=== PATIENT | female | born 1985 ===

== ENCOUNTER 2021-07-22 12:57 | Emergency (ER) | payer MEDICAID ==
[~2021-07-22] VITALS: Ht 162.6 cm; Wt 99.3 kg
[2021-07-22 14:27] VITALS: BP 147/89
[2021-07-22] MEDS ORDERED: KETOROLAC TROMETH 60MG/2ML VIAL IM ONE (14:45)
[2021-07-22] MEDS ORDERED: ONDANSETRON ODT 4 MG TAB PO ONE (14:45)
== END 2021-07-22 15:06 | disposition home or self-care (01) ==
LOC: ER 12:57
DX: G43.909 Migraine, unspecified, not intractable, without status migrainosus (principal)
CPT/HCPCS: 70450; 96372; 99284; J1885; Q0162